=== PATIENT | female | born 1975 | race Caucasian/White ===

== ENCOUNTER 2019-04-13 09:00 | Outpatient (CLI) | payer OTHER ==
--- NOTE | 2019-04-14 14:46 | XRAY Report ---
Reason: RIGHT ANKLE PAIN Procedure Date: 04/13/2019 Accession Number: [id number] / [id number] Procedure: WCP - Ankle 3 View RT CPT Code: FULL RESULT: EXAM: RIGHT ANKLE RADIOGRAPHY EXAM DATE: 04/13/2019 03:17 PM. CLINICAL HISTORY: Right ankle pain. COMPARISON: ANKLE 3 VIEW RT 03/10/2019 1:54 PM. TECHNIQUE: 3 views. FINDINGS: Bones: Normal. No fractures or bone lesions. Joints: Normal. No effusion. No subluxations. The ankle mortise is normally aligned. Soft Tissues: Normal. No soft tissue swelling. IMPRESSION: No acute abnormality identified RADIA
--- NOTE | 2019-04-14 14:47 | XRAY Report ---
Reason: LEFT KNEE PAIN Procedure Date: 04/13/2019 Accession Number: [id number] / [id number] Procedure: WCP - Knee 3 View LT CPT Code: FULL RESULT: EXAM: LEFT KNEE RADIOGRAPHY EXAM DATE: 04/13/2019 03:17 PM. CLINICAL HISTORY: Left knee pain. COMPARISON: None. TECHNIQUE: 3 views. FINDINGS: Bones: Normal. No fractures or bone lesions. Joints: Normal. No effusion. No subluxations. Soft Tissues: Normal. No soft tissue swelling. IMPRESSION: No fracture detected. RADIA
--- NOTE | 2019-04-14 14:47 | XRAY Report ---
Reason: RIGHT WRIST PAIN Procedure Date: 04/13/2019 Accession Number: [id number] / [id number] Procedure: WCP - Wrist 3 View RT CPT Code: FULL RESULT: EXAM: RIGHT WRIST RADIOGRAPHY EXAM DATE: 04/13/2019 03:17 PM. CLINICAL HISTORY: Right wrist pain. COMPARISON: None. TECHNIQUE: 3 views. FINDINGS: Bones: Subtle cortical step-off at the triquetrum, compatible with recent fracture. No fractures detected elsewhere. Joints: Normal. No subluxations. Soft Tissues: Normal. No soft tissue swelling. No subcutaneous radiopaque foreign bodies. IMPRESSION: Findings compatible with recent fracture of the triquetrum. RADIA
== END 2019-04-13 23:59 | disposition home or self-care (01) ==
LOC: DI.WCP 09:00 → EDSTATUS 13:24 → DI.WCP 23:59
PROVIDERS: ATTEND Family Medicine
DX: M25.531 Pain in right wrist (principal); M25.571 Pain in right ankle and joints of right foot; M23.92 Unspecified internal derangement of left knee

== ENCOUNTER 2019-06-06 09:00 | Outpatient (CLI) | payer OTHER ==
--- NOTE | 2019-06-06 16:32 | XRAY Report ---
Reason: NONDISPLACED FRACTURE OF TRIQUETRUM Procedure Date: 06/06/2019 Accession Number: [id number] / [id number] Procedure: WCP - Wrist 3 View RT CPT Code: FULL RESULT: EXAM: RIGHT WRIST RADIOGRAPHY EXAM DATE: 06/06/2019 12:07 PM. CLINICAL HISTORY: NONDISPLACED FRACTURE OF TRIQUETRUM. COMPARISON: WRIST 3 VIEW RT 04/13/2019 2:58 PM. TECHNIQUE: 3 views. FINDINGS: Subtle cortical triquetral step off less well seen today, suggests healing fracture. No other significant finding. IMPRESSION: Healing right triquetral fracture. RADIA
== END 2019-06-06 23:59 | disposition home or self-care (01) ==
LOC: DI.WCP 09:00
PROVIDERS: ATTEND Physician Assistant
DX: S62.114 Nondisplaced fracture of triquetrum [cuneiform] bone, right wrist (principal)

== ENCOUNTER 2019-07-20 08:00 | Outpatient (CLI) | payer OTHER ==
[2019-07-20 13:03] LABS: ALBUMIN 4.2 g/dL (3.2-5.5); ALBUMIN/GLOBULIN RATIO 1.5 (1.0-2.2); ALKALINE PHOSPHATASE 43 IU/L (42-121); ALT ALANINE AMINOTRANSFERASE 24 IU/L (10-60); AST ASPARTATE AMINOTRANSFERASE 36 IU/L (10-42); BILIRUBIN,TOTAL 1.1 mg/dL (0.2-1.0); BUN - BLOOD UREA NITROGEN 11 mg/dL (6-20); CALCIUM 8.9 mg/dL (8.5-10.3); CARBON DIOXIDE - CO2 29 mmol/L (21-32); CHLORIDE 103 mmol/L (101-111); CHOL/HDL RATIO 2.3 (<4.4); CHOLESTEROL 183 mg/dL; CREATININE 0.7 mg/dL (0.4-1.0); GFR - MDRD 92 (>89); GLUCOSE 89 mg/dL (70-100); HDL CHOLESTEROL 80 mg/dL; LDL CHOLESTEROL,CALCULATED 91 mg/dL; LDL/HDL RATIO 1.1 (<4.4); SODIUM 139 mmol/L (135-145); VLDL CHOLESTEROL 12 mg/dL
[2019-07-20 13:05] LABS: BASOPHILS % (AUTO) 0.5 %; EOSINOPHILS # (AUTO) 0.1 10^3/uL (0.0-0.7); EOSINOPHILS % (AUTO) 2.4 %; HGB - HEMOGLOBIN 12.4 g/dL (12.0-16.0); LYMPHOCYTES # (AUTO) 1.5 10^3/uL (1.5-3.5); LYMPHOCYTES % (AUTO) 38.5 %; MEAN CORPUSCULAR HEMOGLOBIN 31.1 pg (27.0-31.0); MEAN CORPUSCULAR HGB CONC 32.2 g/dL (32.0-36.0); MEAN CORPUSCULAR VOLUME 96.5 fL (81.0-99.0); MONOCYTES # (AUTO) 0.5 10^3/uL (0.0-1.0); MONOCYTES % (AUTO) 12.7 %; NEUTROPHILS # (AUTO) 1.7 10^3/uL (1.5-6.6); NEUTROPHILS % (AUTO) 45.6 %; PLT - PLATELET COUNT 223 10^3/uL (130-450); RED BLOOD COUNT 3.99 10^6/uL (4.20-5.40); RED CELL DISTRIBUTION WIDTH 12.6 % (12.0-15.0); WHITE BLOOD COUNT 3.8 x10^3/uL (4.8-10.8)
== END 2019-07-20 23:59 | disposition home or self-care (01) ==
LOC: LAB.WCP 08:00
PROVIDERS: ATTEND Physician Assistant
DX: Z79.899 Other long term (current) drug therapy (principal); Z13.220 Encounter for screening for lipoid disorders; Z13.29 Encounter for screening for other suspected endocrine disorder
CPT/HCPCS: 36415; 80053; 80061; 83721; 84443; 85025

== ENCOUNTER 2020-05-13 12:16 | Outpatient (CLI) | payer OTHER ==
--- NOTE | 2020-05-13 12:24 | XRAY Report ---
PROCEDURE: Foot 3 View RT INDICATIONS: RIGHT FOOT PAIN TECHNIQUE: 3 views of the foot were acquired. COMPARISON: None FINDINGS: Bones: No fractures or dislocations. No suspicious bony lesions. Soft tissues: No tibiotalar joint effusion. Achilles tendon appears normal. IMPRESSION: Unremarkable radiographic examination of right foot. Reviewed by: Mark Sanders MD on 05/13/2020 11:23 AM JAMES Approved by: Mark Sanders MD on 05/13/2020 11:23 AM AKTED Station ID: [id number]
== END 2020-05-13 23:59 | disposition home or self-care (01) ==
LOC: DI.WCP 12:16
PROVIDERS: ATTEND Family Medicine
DX: M79.671 Pain in right foot (principal)

== ENCOUNTER 2020-05-24 12:52 | Outpatient (CLI) | payer OTHER ==
--- NOTE | 2020-05-24 16:59 | MRI Report ---
PROCEDURE: Foot RT W/O INDICATIONS: RT FOOT PAIN TECHNIQUE: Noncontrast coronal and sagittal T1 spin echo and STIR; axial T1 spin echo and T2 fast spin echo with fat saturation through the right foot. COMPARISON: Left foot radiograph dated 05/13/2020. FINDINGS: Image quality: Excellent. Bones: Very mild osteoarthritic changes are seen at first MTP joint. No gross marrow edema. No fractu re or dislocation. No evidence of metatarsal bone stress fracture. No gross bony erosive changes or s uspicious intraosseous lesion. Soft tissues: The scanned muscles demonstrate normal overall bulk and internal signal. Extensor and flexor tendons are intact. Lisfranc ligament and joint is intact. Subcutaneous tissues appear normal as well. No soft tissue masses are present. Visualized portion of plantar aponeurosis is intact. IMPRESSION: 1. Very mild first MTP joint osteoarthritis. No fracture or dislocation. No evidence of metatarsal shannan ne stress fracture. 2. Midfoot and forefoot tendons and ligaments are grossly intact. Visualized portion of the plantar n eurosis is intact. Reviewed by: Mark Sanders MD on 05/24/2020 4:58 PM PDT Approved by: Mark Sanders MD on 05/24/2020 4:58 PM PDT Station ID: [id number]
== END 2020-05-24 12:53 | disposition home or self-care (01) ==
LOC: DI 12:52
PROVIDERS: ATTEND Family Medicine
DX: M19.071 Primary osteoarthritis, right ankle and foot (principal)

== ENCOUNTER 2020-08-21 12:05 | Outpatient (CLI) | payer OTHER ==
--- NOTE | 2020-08-21 13:38 | XRAY Report ---
PROCEDURE: Ankle 2 View LT INDICATIONS: SPRAIN OF UNSPECIFIED LIGAMENT OF L ANKLE TECHNIQUE: 2 views of the ankle were acquired. FINDINGS: Bones: No fractures or dislocations. Ankle mortise is normally aligned. No suspicious bony lesions . Soft tissues: No tibiotalar joint effusion. Achilles tendon appears normal. IMPRESSION: No trauma found. No malalignment identified. Reviewed by: Eddie Nina MD on 08/21/2020 1:37 PM PST Approved by: Eddie Nina MD on 08/21/2020 1:37 PM PST Station ID: [id number]
--- NOTE | 2020-08-21 13:39 | XRAY Report ---
PROCEDURE: Tib/Fib LT INDICATIONS: SPRAIN OF UNSPECIFIED LIGAMENT OF L ANKLE TECHNIQUE: 2 views of the tibia and fibula were acquired. COMPARISON: Ankle plain film same day. FINDINGS: Bones: No fractures or dislocations. No suspicious bony lesions. Soft tissues: No suspicious soft tissue calcifications or masses. IMPRESSION: No trauma found. Reviewed by: Eddie Nina MD on 08/21/2020 1:37 PM PST Approved by: Eddie Nina MD on 08/21/2020 1:37 PM [facility] Station ID: [id number]
== END 2020-08-21 23:59 | disposition home or self-care (01) ==
LOC: DI.N 12:05
PROVIDERS: ATTEND Nurse Practitioner
DX: S93.402A Sprain of unspecified ligament of left ankle, initial encounter (principal)

== ENCOUNTER 2020-09-07 15:33 | Emergency (ER) | payer OTHER ==
[2020-09-07 15:48] VITALS: BP 135/90
[2020-09-07] MEDS ORDERED: HYDROcod/ACETAM 5/325 MG TABLET PO STA (15:56)
--- NOTE | 2020-09-07 15:57 | ED Physician Documentation ---
PD HPI UPPER EXT INJURY - Stated complaint Stated Complaint: L ARM PX - Chief complaint Chief Complaint: Trauma Ext - History obtained from History obtained from: Patient (One of her horses kicked her twice in the elbow and left wrist. No other injuries. Pain is moderate to severe. This happened just prior to arrival.) Review of Systems Constitutional: reports: Reviewed and negative Eyes: reports: Reviewed and negative Ears: reports: Reviewed and negative Nose: reports: Reviewed and negative Throat: reports: Reviewed and negative PD PAST MEDICAL HISTORY - Present Medications Home Medications: Ambulatory Orders Medication Instructions Recorded Confirmed HYDROcod/ACETAM 5/325 [[place] 5/325] 1 - 2 tab PO Q6H PRN #15 tablet 09/07/20 Sertraline [Zoloft] 50 mg PO DAILY 09/07/20 09/07/20 - Allergies Allergies/Adverse Reactions: Allergies Allergy/AdvReac Type Severity Reaction Status Date / Time No Known Drug Allergies Allergy Verified 09/07/20 15:48 - Social History Does the pt smoke?: No Smoking Status: Never smoker PD ED PE NORMAL - Vitals Vital signs reviewed: Yes - General General: Alert and oriented X 3, No acute distress - HEENT HEENT: PERRL, EOMI - Neck Neck: No bony TTP - Extremities Extremities: Other (Tender over the olecranon with small skin tear there. She is unable to range the elbow due to pain. No deformity. She is up-to-date on tetanus. Mild tenderness over the wrist without deformity. Decent range of motion of the wrist.) - Neuro Neuro: Alert and oriented X 3, Normal speech Results - Vitals Vitals: Vital Signs - 24 hr 09/07/20 15:44 Temperature 36.7 C Heart Rate 52 L Respiratory 17 Rate Blood Pressure 135/90 H O2 Saturation 100 Oxygen O2 Source Room air - Rads (name of study) X-rays of the left wrist, 4 views, and left elbow, 3 views Radiology: EMP read contemporaneously (Soft tissue swelling of the wrist with a questionable hairline fracture of the olecranon on the radial side with a joint effusion of the elbow.) Procedures - Splint (location) LUE Splint applied by: Tech Type of splint: Fiberglass, Long arm, Posterior Other: Patient tolerated well, No complications, Neurovascular intact, Sling provided Departure - Departure Disposition: Home, Self Care Clinical Impression: Olecranon fracture Qualifiers: Encounter type: initial encounter Fracture type: closed Laterality: left Qualified Code(s): S52.022A - Displaced fracture of olecranon process without intraarticular extension of left ulna, initial encounter for closed fracture Contusion of left wrist Qualifiers: Encounter type: initial encounter Qualified Code(s): S60.212A - Contusion of left wrist, initial encounter Condition: Good Record reviewed to determine appropriate education?: Yes Instructions: ED Fx Elbow Follow-Up: [facility] [Provider Group] - Within 1 week Prescriptions: HYDROcod/ACETAM 5/325 [[place] 5/325] 1 - 2 tab PO Q6H PRN #15 tablet PRN Reason: Pain Comments: As discussed there is a questionable hairline fracture of the olecranon on the radial side. As such you should keep the splint on and dry until following up with orthopedics office in about a week. Call them on Wednesday for an appointment. Return as needed for new or worsening symptoms. Do not drink or drive while taking narcotic pain medication. Note that many narcotic pain relievers also contain Tylenol/acetaminophen. Please ensure that your total dose of acetaminophen from all sources does not exceed 3 g (3000 mg) per day. You may get constipated while on this medication. Take a stool softener such as Colace twice a day while you are on it. Also add an [id number]-[id number] laxative such as senna or MiraLAX on any day that you do not have a bowel movement. If you received a narcotic pain medication or sedative while in the emergency department, do not drive for the next 24 hours.
--- NOTE | 2020-09-07 16:34 | XRAY Report ---
PROCEDURE: Wrist 4 View LT INDICATIONS: kicked by horse TECHNIQUE: 4 views of the wrist were acquired. COMPARISON: None FINDINGS: Bones: No fractures or dislocations. No suspicious bony lesions. Scaphoid view: No fracture. Soft tissues: Mild dorsal soft tissue swelling. IMPRESSION: Dorsal soft tissue swelling without acute osseous abnormality. Reviewed by: Gerson Moore DO on 09/07/2020 3:33 PM SHANNAN Approved by: Gerson Moore DO on 09/07/2020 3:33 PM [facility] Station ID: [id number]
--- NOTE | 2020-09-07 16:38 | XRAY Report ---
PROCEDURE: Elbow 3 View LT INDICATIONS: kicked by horse TECHNIQUE: 3 views of the elbow were acquired. COMPARISON: None FINDINGS: Bones: Subtle calcification along the radial aspect of the olecranon noted on the frontal views witho ut definite correlate on the lateral view. Soft tissues: Small elbow joint effusion. No suspicious soft tissue calcifications. Mild soft tissue swelling posteriorly IMPRESSION: Questionable fracture of the olecranon along the radial aspect. Recommend correlation with point tend erness. Small joint effusion. Reviewed by: Gerson Moore DO on 09/07/2020 3:37 PM [place] Approved by: Gerson Moore DO on 09/07/2020 3:37 PM [facility] Station ID: [id number]
== END 2020-09-07 17:09 | disposition home or self-care (01) ==
LOC: ED 15:33
DX: S52.022A Displaced fracture of olecranon process without intraarticular extension of left ulna, initial encounter for closed fracture (principal); S60.212A Contusion of left wrist, initial encounter; W55.12XA Struck by horse, initial encounter
CPT/HCPCS: 29105; 73080; 73110; 99284; A9270

== ENCOUNTER 2020-09-26 17:57 | Outpatient (CLI) | payer OTHER ==
--- NOTE | 2020-09-26 16:53 | XRAY Report ---
PROCEDURE: Wrist 3 View LT INDICATIONS: CONTUSION OF L WRIST TECHNIQUE: 3 views of the wrist were acquired. COMPARISON: Left wrist radiographs 09/07/2020 FINDINGS: Bones: No acute fractures or dislocations. No suspicious bony lesions. Soft tissues: No suspicious soft tissue calcifications. Mild soft tissue edema is again noted at th e dorsal aspect of the wrist. IMPRESSION: No acute osseous abnormality. Soft tissue edema is again noted at the dorsum of the wrist. If there i s clinical concern or persistent symptoms, advanced imaging (e.g. CT, MRI) may be helpful for further evaluation. Reviewed by: Frandy Barnhart MD on 09/26/2020 4:52 PM PST Approved by: Frandy Barnhart MD on 09/26/2020 4:52 PM PST Station ID: [id number]
== END 2020-09-26 23:59 | disposition home or self-care (01) ==
LOC: DI.N 17:57
PROVIDERS: ATTEND Physician Assistant
DX: S60.212A Contusion of left wrist, initial encounter (principal)

== ENCOUNTER 2021-02-17 18:15 | Emergency (ER) | payer OTHER ==
[2021-02-17] MEDS ORDERED: DEXAMETHASONE 10 MG/ML VIAL IVP STA (18:25)
[2021-02-17] MEDS ORDERED: EPINEPHrine 1 MG/ML AMP IM STA (18:25)
--- NOTE | 2021-02-17 18:26 | ED Physician Documentation ---
History of Present Illness - Stated complaint Stated Complaint: MULTIPLE WASP STINGS,SWOLLEN FACE, RASH - History obtained from History obtained from: Patient - Additonal information Additional information: Stung by many wasps on the left side of the face just prior to arrival and has significant swelling. Already took 50 mg of oral Benadryl prior to arrival. She thinks Review of Systems Constitutional: reports: Reviewed and negative Eyes: reports: Reviewed and negative Ears: reports: Reviewed and negative PD PAST MEDICAL HISTORY - Present Medications Home Medications: Ambulatory Orders Medication Instructions Recorded Confirmed Sertraline [Zoloft] 50 mg PO DAILY 09/07/20 09/07/20 Doxepin [SINEquan] 10 mg PO TID PRN #30 cap 02/17/21 predniSONE [Deltasone] 60 mg PO DAILY 5 Days #15 tablet 02/17/21 - Allergies Allergies/Adverse Reactions: Allergies Allergy/AdvReac Type Severity Reaction Status Date / Time insect venom Allergy Anaphylaxis Verified 02/17/21 18:27 - Social History Does the pt smoke?: No Smoking Status: Never smoker PD ED PE NORMAL - Vitals Vital signs reviewed: Yes - General General: Alert and oriented X 3, No acute distress - HEENT HEENT: PERRL, EOMI, Other (Significant angioedema L face, none in the OP.) - Neck Neck: Supple, no meningeal sign, No bony TTP - Cardiac Cardiac: RRR, No murmur - Respiratory Respiratory: No respiratory distress, Clear bilaterally - Abdomen Abdomen: Non tender - Neuro Neuro: Alert and oriented X 3, Normal speech Results - Vitals Vitals: Vital Signs - 24 hr 02/17/21 02/17/21 02/17/21 18:24 18:42 19:03 Heart Rate 100 46 L 51 L Respiratory 18 17 21 Rate Blood Pressure 126/90 H 136/86 H 137/80 H O2 Saturation 100 100 100 02/17/21 02/17/21 19:30 20:00 Heart Rate 56 L 60 Respiratory 21 19 Rate Blood Pressure 116/73 118/68 O2 Saturation 100 99 Oxygen O2 Source Room air PD MEDICAL DECISION MAKING - ED course Complexity details: re-evaluated patient ED course: Not truly anaphlaxis but tx as such given proximity to airway. Given IM epi, IV dexamethasone. Had benadryl. 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 Swelling to L face improved during obs period. Departure - Departure Disposition: 01 Home, Self Care Clinical Impression: Hymenoptera reaction Condition: Good Record reviewed to determine appropriate education?: Yes Instructions: ED Bite Sting Insect Gen Allergic React Prescriptions: predniSONE [Deltasone] 60 mg PO DAILY 5 Days #15 tablet Doxepin [SINEquan] 10 mg PO TID PRN #30 cap PRN Reason: Itching Comments: Call your doctor to arrange a follow-up appointment, make the next available appointment. In the interim, return anytime if worse or if new symptoms develop. Discharge Date/Time: 02/17/21 20:35
[2021-02-17] MEDS ORDERED: DOXEPIN 10 MG CAPSULE PO STA (19:23)
[2021-02-17 20:07] VITALS: BP 118/68
== END 2021-02-17 20:35 | disposition home or self-care (01) ==
LOC: ED 18:15
DX: T63.461A Toxic effect of venom of wasps, accidental (unintentional), initial encounter (principal); T78.3XXA Angioneurotic edema, initial encounter
CPT/HCPCS: 96372; 96374; 99283; 99284; A9270

== ENCOUNTER 2021-08-25 08:00 | Outpatient (CLI) | payer OTHER | END 2021-08-25 23:59 | LOC: LAB.N 08:00 | PROVIDERS: ATTEND Family Medicine | DX: J02.9 Acute pharyngitis, unspecified (principal); R52 Pain, unspecified; R05.9 Cough, unspecified; Z20.822 Contact with and (suspected) exposure to COVID-19 | CPT/HCPCS: 87070; 87275; 87276 ==